=== PATIENT | female | born 1935 | race Caucasian/White ===

== ENCOUNTER 2017-04-14 08:16 | Emergency (ER) | payer MEDICARE, BC ==
--- NOTE | 2017-04-21 18:56 | ER ---
ADMIT: 04/14/2017 RM/LOC: ER [facility] MR#: [id number] [facility] [id number] [place] RUSSO [address] [place] [address] Emergency Room Report SEX: F AGE: 81 : 1935 DATE: 04/14/2017 ADDENDUM: An 81-year-old white female coming in, who fell at home. She is somewhat frail. She does have Parkinson's. She hit her head, has a little neck pain, her left wrist hurts, these are all negative at this time. Discharged out with Drake wrap to the left wrist and then suggesting a walker, and follow up next week with doctor. CONDITION ON DISCHARGE: Fair. Martinez Cummins MD/ dione JOB #: [id number] CC: Martinez Cummins MD, Attending Physician UNKNOWN, Family Physician
== END 2017-04-14 10:35 | disposition home or self-care (01) ==
LOC: ER 08:16
DX: S63.502A Unspecified sprain of left wrist, initial encounter (principal); S00.83XA Contusion of other part of head, initial encounter; M54.2 Cervicalgia; Z79.899 Other long term (current) drug therapy; W18.30XA Fall on same level, unspecified, initial encounter; Y92.009 Unspecified place in unspecified non-institutional (private) residence as the place of occurrence of the external cause